=== PATIENT | male | born 1985 | race African-American/Black ===

== ENCOUNTER 2020-07-05 12:15 | Emergency (ER) | payer SELFPAY ==
[~2020-07-05] VITALS: Ht 175.3 cm; Wt 88.0 kg
[~2020-07-05 12:15] MED LIST: INSU100C SQ; INSU100I13 SQ; INSU100I17 SQ; INSU100I18 SQ; INSU100V SQ; INSU100V13 SQ; INSU100V31 SQ; Insulin Detemir SQ; ONDA8TAB9 PO
--- NOTE | 2020-07-05 12:36 | PHYS DOC ---
Past History Past Medical History: Diabetes (ONUR KARIMI APRN) Past Surgical History: No Surgical History (ONUR KARIMI APRN) Smoking: Cigarettes Alcohol Use: None Drug Use: Marijuana (ONUR KARIMI APRN) General Adult HPI: HPI: Patient is a 34-year-old male who presents with nausea/vomiting/diarrhea since Sunday. "I thought that he had food poisoning but I still have not gotten any better". Patient is reporting generalized abdominal pain. "My stomach starts hurting and burning before a throw up". Patient denies fever or recent exposure. Patient is a type I diabetic. "I have not taken my insulin or checked my blood sugar since Sunday". Patient states he has a history of hypertension, type 1 diabetes. Patient denies taking anything for nausea or abdominal pain prior to arrival. (ONUR KARIMI APRN) Review of Systems: Review of Systems: Constitutional: Denies fever or chills Eyes: Denies change in visual acuity HENT: Denies nasal congestion or sore throat Respiratory: Denies cough or shortness of breath Cardiovascular: Denies chest pain or edema GI: Reports generalized abdominal pain, nausea, vomiting, diarrhea : Denies dysuria Musculoskeletal: Denies back pain or joint pain Integument: Denies rash Neurologic: Denies headache, focal weakness or sensory changes Endocrine: Denies polyuria or polydipsia Lymphatic: Denies swollen glands Psychiatric: Denies depression or anxiety (ONUR KARIMI APRN) Allergies: Allergies: Allergies Coded Allergies Type Severity Reaction Last Updated Verified No Known Allergies Allergy Unknown 12/19/13 No (ONUR KARIMI APRN) Physical Exam: PE: Constitutional: Well developed, well nourished, no acute distress, non-toxic appearance. [] HENT: Normocephalic, atraumatic, bilateral external ears normal, oropharynx moist, no oral exudates, nose normal. [] Eyes: PERRLA, EOMI, conjunctiva normal, no discharge. [] Neck: Normal range of motion, no tenderness, supple, no stridor. [] Cardiovascular: Sinus tachycardia, no murmur [] Lungs & Thorax: Bilateral breath sounds clear to auscultation [] Abdomen: Bowel sounds normal, soft, no tenderness, no masses Skin: Warm, dry, no erythema, no rash. [] Back: No tenderness, no CVA tenderness. [] Extremities: No tenderness, no cyanosis, no clubbing, ROM intact, no edema. [] Neurologic: Alert and oriented X 3, normal motor function, normal sensory function, no focal deficits noted. [] Psychologic: Affect normal, judgement normal, mood normal. [] (ONUR KARIMI APRN) EKG: EKG: [] Sinus tachycardia. Heart rate 122 bpm. (ONUR KARIMI APRN) Radiology/Procedures: Radiology/Procedures: []EXAM: Chest, single view. HISTORY: Nausea and vomiting. COMPARISON: 07/22/2014 FINDINGS: A frontal view of the chest is obtained. There is no infiltrate, pleural effusion or pneumothorax. The heart is normal in size. IMPRESSION: No acute pulmonary finding. Electronically signed by: Lorena Kim MD (07/05/2020 1:02 PM) [id number] EXAM: Abdomen and pelvis CT without intravenous contrast. HISTORY: Pain. TECHNIQUE: Computed tomographic images of the abdomen and pelvis were obtained without contrast. Multiplanar reformatting was performed. *One or more of the following individualized dose reduction techniques were utilized for this examination: 1. Automated exposure control. 2. Adjustment of the mA and/or kV according to patient size. 3. Use of iterative reconstruction technique. COMPARISON: None. FINDINGS: Evaluation of the lower thorax is unremarkable. No hepatic lesion is seen. The gallbladder, pancreas, spleen, adrenal glands and right kidney are unremarkable. There is a 10 mm fluid density lesion within the inferior left kidney, likely due to a cyst. There is no appendicitis. There is no evidence of bowel obstruction. The bladder wall slightly prominent for bladder volume. This is not within limits to suggest cystitis. The aorta is normal in caliber. There is no lymphadenopathy. There is no suspicious osseous lesion. IMPRESSION: 1. No convincing acute abdominal or pelvic finding. 2. Small simple appearing left renal cyst. Follow-up is not routinely performed for simple cysts. Electronically signed by: Lorena Kim MD (07/05/2020 1:06 PM) [id number] (ONUR KARIMI APRN) Heart Score: C/O Chest Pain: No Risk Factors: Risk Factors: DM, Current or recent (<one month) smoker, HTN, HLP, family hi story of CAD, obesity. Risk Scores: Score 0 - 3: 2.5% MACE over next 6 weeks - Discharge Home Score 4 - 6: 20.3% MACE over next 6 weeks - Admit for Clinical Observation Score 7 - 10: 72.7% MACE over next 6 weeks - Early Invasive Strategies (ONUR KARIMI APRN) Course & Med Decision Making: Course & Med Decision Making Pertinent Labs and Imaging studies reviewed. (See chart for details) [] Patient presents to emergency room with nausea/vomiting/diarrhea since Sunday. Patient is a type I diabetic and has not been checking his sugars or taking his insulin since Sunday. Patient does report he is able to keep down fluids but has not been eating. NS bolus given due to vomiting and hypergl ycemia. Zofran given for nausea and vomiting. Patient sinus tachycardia on arrival, 125 bpm. Patient is alert and oriented x4. Denies chest pain or fever. Reporting generalized abdominal pain. Anion gap 16, creatinine 2.0. WBCs 14.9. pH 7.47, bicarb 22.6, SaO2 89%. Patient given second bolus of NS and 10 units of insulin. Patient's blood sugar is 260 after fluids and insulin. Patient states "I feel much better". Denying nausea, abdominal pain. Patient's stating that he does not want to be admitted to the hospital. Patient states that he has insulin at home and he agrees to check his blood sugar, and take his insulin as directed. Explained to patient that he needs to return to the emergency room with worsening symptoms or concerns. Patient agrees with this plan. (ONUR KARIMI APRN) Dragon Disclaimer: Dragon Disclaimer: This electronic medical record was generated, in whole or in part, using a voice recognition dictation system. (ONUR KARIMI APRN) Attending Co-Sign The patient was seen and interviewed as well as examined at the bedside. The main campus medical center rt was reviewed. The case was discussed. Agree with the plan of care. (KAY ARTIS DO) Departure Departure: Impression: Primary Impression: Hyperglycemia Disposition: HOME / SELF CARE / HOMELESS Condition: IMPROVED Referrals: PCP,NO (PCP) Patient Instructions: Hyperglycemia, [id number] Additional Instructions: You were seen in the emergency room for nausea/vomiting/diarrhea and hyperglycemia. Your blood sugar was elevated on arrival. You were given fluids and insulin to treat. You were also given medication to treat your nausea and pain. All of your symptoms and blood sugar improved after treatment. You were requesting a work note and to be discharged from the emergency room. Please continue to check your blood sugar and take your insulin as directed by your PCP. Please return to the emergency room with worsening symptoms or concerns. EMERGENCY DEPARTMENT GENERAL DISCHARGE INSTRUCTIONS Thank you for coming to [facility] (ED) today and trusting us with you care. We trust that you had a positivie experience in our Emergency Department. If you wish to speak to the department management, you may call the director at [phone]. YOUR FOLLOW UP INSTRUCTIONS ARE FOLLOWS: 1. Do you have a private Doctor? If you do not have a private doctor, please ask for a resource list of physicians or clinics that may be able to assist you with follow up care. 2. The Emergency Physician has interpreted your x-rays. The X-Ray specialist will also review them. If there is a change in the findings, you will be notified in 48 hours when at all possible. 3. A lab test or culture has been done, your results will be reviewed and you will be notified if you need a change in treatment. ADDITIONAL INSTRUCTIONS AND INFORMATION: 1. Your care today has been supervised by a physician who is specially trained in emergency care. Many problems require more than one evaluation for a complete diagnosis and treatment. We recommend that you schedule your follow up appointment as recommended to ensure complete treatment of you illness or injury. If you are unable to obtain follow up care and continue to have a problem, or if your condition worsens, we recommend that you return to the ED. 2. We are not able to safely determine your condition over the phone nor are we able to give sound medical advice over the phone. For these safety reasons, if you call for medical advice we will ask you to come to the ED for further evaluation. 3. If you have any questions regarding these discharge instructions please call the ED at [phone]. SAFETY INFORMATION: In the interest of safety, wellness, and injury prevention; we encourage you to wear your sealbelt, if you smoke; quite smoking, and we encourage family to use a protective helmet for bicycling and other sporting events that present an increased risk for head injury. IF YOUR SYMPTOMS WORSEN OR NEW SYMPTOMS DEVELOP, OR YOU HAVE CONCERNS ABOUT YOUR CONDITION; OR IF YOUR CONDITION WORSENS WHILE YOU ARE WAITING FOR YOUR FOLLOW UP APPOINTMENT; EITHER CONTACT YOUR PRIMARY CARE DOCTOR, THE PHYSICIAN WHOSE NAME AND NUMBER YOU WERE GIVEN, OR RETURN TO THE ED IMMEDIATELY. Scripts Ondansetron Hcl (ZOFRAN) 4 Mg Tablet 4 MG PO TID PRN PRN for NAUSEA, #9 TAB Prov: ONUR KARIMI APRN 07/05/20 ONUR KARIMI APRN Jul 05, 2020 12:36 KAY ARTIS DO Jul 06, 2020 06:13
[2020-07-05] MEDS ORDERED: IV NORMAL SALINE 1,000ML 1,000 ML IV ONE ×2 (12:45→14:15)
[2020-07-05] MEDS ORDERED: ONDANSETRON PF 4 MG/2 ML VIAL. IVP ONE ×2 (12:45→14:15)
[2020-07-05 13:00] LABS: BASO # 0.1 x10^3/uL (0.0-0.2); BASO % 1 % (0-3); EOS % 0 % (0-3); HEMATOCRIT 46.2 % (39.0-53.0); HEMOGLOBIN 15.9 g/dL (13.0-17.5); LYMPH # 2.9 x10^3/uL (1.0-4.8); LYMPH % 19 % (24-48); MEAN CORPUSCULAR HEMOGLOBIN 32 pg (25-35); MEAN CORPUSCULAR HGB CONC 35 g/dL (31-37); MEAN CORPUSCULAR VOLUME 92 fL (79-100); MONO # 1.1 x10^3/uL (0.0-1.1); MONO % 7 % (0-9); NEUT # 10.8 x10^3uL (1.8-7.7); NEUT % 73 % (31-73); PLATELET COUNT 236 x10^3/uL (140-400); RED BLOOD COUNT 5.04 x10^6/uL (4.30-5.70); RED CELL DISTRIBUTION WIDTH 12.8 % (11.5-14.5); WHITE BLOOD COUNT 14.9 x10^3/uL (4.0-11.0)
--- NOTE | 2020-07-05 13:04 | RAD ---
EXAM: Chest, single view. HISTORY: Nausea and vomiting. COMPARISON: 07/22/2014 FINDINGS: A frontal view of the chest is obtained. There is no infiltrate, pleural effusion or pneumo thorax. The heart is normal in size. IMPRESSION: No acute pulmonary finding. Electronically signed by: Lorena Kim MD (07/05/2020 1:02 PM) [id number]
[2020-07-05 13:05] LABS: GFR 47.1
--- NOTE | 2020-07-05 13:08 | RAD ---
EXAM: Abdomen and pelvis CT without intravenous contrast. HISTORY: Pain. TECHNIQUE: Computed tomographic images of the abdomen and pelvis were obtained without contrast. Mult iplanar reformatting was performed. *One or more of the following individualized dose reduction techniques were utilized for this examina tion: 1. Automated exposure control. 2. Adjustment of the mA and/or kV according to patient size. 3. Use of iterative reconstruction technique. COMPARISON: None. FINDINGS: Evaluation of the lower thorax is unremarkable. No hepatic lesion is seen. The gallbladder, pancreas, spleen, adrenal glands and right kidney are unremarkable. There is a 10 mm fluid density l esion within the inferior left kidney, likely due to a cyst. There is no appendicitis. There is no ev idence of bowel obstruction. The bladder wall slightly prominent for bladder volume. This is not with in limits to suggest cystitis. The aorta is normal in caliber. There is no lymphadenopathy. There is no suspicious osseous lesion. IMPRESSION: 1. No convincing acute abdominal or pelvic finding. 2. Small simple appearing left renal cyst. Follow-up is not routinely performed for simple cysts. Electronically signed by: Lorena Kim MD (07/05/2020 1:06 PM) [id number]
[2020-07-05 13:10] LABS: ALBUMIN 3.5 g/dL (3.4-5.0); ALBUMIN/GLOBULIN RATIO 0.8 (1.0-1.7); MAGNESIUM 2.1 mg/dL (1.8-2.4); TOTAL BILIRUBIN 0.9 mg/dL (0.2-1.0); TOTAL PROTEIN 7.8 g/dL (6.4-8.2)
[2020-07-05] MEDS ORDERED: INSULIN REGULAR 100 UNIT/ML 3ML VIAL. IV ONE (13:45)
[2020-07-05] MEDS ORDERED: MORPHINE SULFATE 4 MG/ML DISP.SYRIN. IV ONE (14:15)
--- NOTE | 2020-07-05 15:04 | EKG ---
[address] [address] Test Date: 2020-07-05 Test Time: 13:15:06 Pat Name: NISHA BAIRD Department: Room: Gender: M [employer] Computer Operator: ALDO : [id number] Requested By: ONUR KARIMI Order Number: [id number] Reading MD: Measurements Intervals [place] Rate: 122 P: 53 NV: 126 QRS: 81 QRSD: 90 T: 51 QT: 310 QTc: 443 Interpretive Statements SINUS TACHYCARDIA OTHERWISE NORMAL ECG RI6.02 No previous ECG available for comparison
[2020-07-05 15:22] VITALS: BP 173/91
[2020-07-05] MEDS ORDERED: ONDA4TAB7 PO (15:26)
== END 2020-07-05 15:48 | disposition home or self-care (01) ==
LOC: ER 12:15
DX: E11.65 Type 2 diabetes mellitus with hyperglycemia (principal); R11.2 Nausea with vomiting, unspecified; I10 Essential (primary) hypertension; F17.210 Nicotine dependence, cigarettes, uncomplicated
CPT/HCPCS: 36415; 71045; 74176; 80053; 82010; 82803; 82947; 83735; 85025; 93005; 96361; 96374; 96375; 96376; 99285; J1815; J2270; J2405; J7030

== ENCOUNTER 2020-07-10 13:18 | Emergency (ER) | payer SELFPAY ==
[~2020-07-10] VITALS: Ht 175.3 cm; Wt 88.0 kg
[~2020-07-10 13:18] MED LIST changes: +ONDA4TAB7 PO
[2020-07-10] MEDS ORDERED: IV NORMAL SALINE 1,000ML 1,000 ML IV ONE ×2 (13:45→16:15)
[2020-07-10 13:56] LABS: BASO # 0.1 x10^3/uL (0.0-0.2); BASO % 1 % (0-3); EOS # 0.3 x10^3/uL (0.0-0.7); EOS % 2 % (0-3); HEMATOCRIT 43.1 % (39.0-53.0); HEMOGLOBIN 15.1 g/dL (13.0-17.5); LYMPH # 2.4 x10^3/uL (1.0-4.8); LYMPH % 21 % (24-48); MEAN CORPUSCULAR HEMOGLOBIN 32 pg (25-35); MEAN CORPUSCULAR HGB CONC 35 g/dL (31-37); MEAN CORPUSCULAR VOLUME 90 fL (79-100); MONO # 0.7 x10^3/uL (0.0-1.1); MONO % 7 % (0-9); NEUT # 8.1 x10^3uL (1.8-7.7); NEUT % 70 % (31-73); PLATELET COUNT 194 x10^3/uL (140-400); RED BLOOD COUNT 4.79 x10^6/uL (4.30-5.70); RED CELL DISTRIBUTION WIDTH 12.6 % (11.5-14.5); WHITE BLOOD COUNT 11.5 x10^3/uL (4.0-11.0)
[2020-07-10] MEDS ORDERED: ONDANSETRON PF 4 MG/2 ML VIAL. IVP ONE ×2 (14:00→16:15)
[2020-07-10] MEDS ORDERED: MORPHINE SULFATE 4 MG/ML DISP.SYRIN. IV ONE (14:00)
[2020-07-10 14:03] LABS: CALCIUM 8.4 mg/dL (8.5-10.1); CREATININE 1.6 mg/dL (0.7-1.3); GFR 60.9; POTASSIUM 3.4 mmol/L (3.5-5.1)
--- NOTE | 2020-07-10 14:03 | PHYS DOC ---
Past History Past Medical History: Diabetes Past Surgical History: No Surgical History Smoking: Cigarettes Alcohol Use: None Drug Use: Marijuana General Adult EDM: Chief Complaint: NAUSEA/VOMITING/DIARRHEA HPI: HPI: Patient is a 34-year-old male who presents with nausea/vomiting/diarrhea, left- sided flank pain. Patient was seen here earlier in the week for vomiting and diarrhea, uncontrolled blood sugars. Patient states "I felt fine until this morning, started having left-sided back pain, vomiting and diarrhea". Patient denies fever. Patient reports pain is sharp, generalized lower abdominal pain. Blood sugar was 148 emergency room. Patient states he has been taking ibuprofen and Zofran at home for nausea. Patient reports he is out for nausea medication. Patient has history of diabetes. Review of Systems: Review of Systems: Constitutional: Denies fever or chills Eyes: Denies change in visual acuity HENT: Denies nasal congestion or sore throat Respiratory: Denies cough or shortness of breath Cardiovascular: Denies chest pain or edema GI: Reports abdominal pain, nausea/vomiting/diarrhea : Denies dysuria Musculoskeletal: Reports left-sided flank pain Integument: Denies rash Neurologic: Denies headache, focal weakness or sensory changes Endocrine: Denies polyuria or polydipsia Lymphatic: Denies swollen glands Psychiatric: Denies depression or anxiety Current Medications: Current Meds: Current Medications Medications (Trade) Dose Ordered Sig/Meghann Start Time Stop Time Status Last Admin Dose Admin Morphine Sulfate (Morphine 4mg Syringe) 4 mg 1X ONCE 07/10/20 14:00 07/10/20 14:01 UNV Ondansetron HCl (Zofran) 4 mg 1X ONCE 07/10/20 14:00 07/10/20 14:01 UNV Sodium Chloride 1,000 ml @ 1,000 mls/hr 1X ONCE 07/10/20 13:45 07/10/20 14:44 Allergies: Allergies: Allergies Coded Allergies Type Severity Reaction Last Updated Verified No Known Allergies Allergy Unknown 12/19/13 No Physical Exam: PE: Constitutional: Well developed, well nourished, no acute distress, non-toxic appearance. [] HENT: bilateral external ears normal, oropharynx moist, no oral exudates, nose normal. [] Eyes: PERRLA, EOMI, conjunctiva normal, no discharge. [] Neck: Normal range of motion, no tenderness, supple, no stridor. [] Cardiovascular:Heart rate regular rhythm, no murmur [] Lungs & Thorax: Bilateral breath sounds clear to auscultation [] Abdomen: Bowel sounds normal, soft, lower abdominal tenderness Skin: Warm, dry, no erythema, no rash. [] Back: No tenderness, left-sided flank pain Extremities: No tenderness, no cyanosis, no clubbing, ROM intact, no edema. [] Neurologic: Alert and oriented X 3, normal motor function, normal sensory function, no focal deficits noted. [] Psychologic: Affect normal, judgement normal, mood normal. [] Current Patient Data: Labs: Laboratory Tests Test 07/10/20 13:38 07/10/20 13:51 White Blood Count 11.5 x10^3/uL (4.0-11.0) H Red Blood Count 4.79 x10^6/uL (4.30-5.70) Hemoglobin 15.1 g/dL (13.0-17.5) Hematocrit 43.1 % (39.0-53.0) Mean Corpuscular Volume 90 fL (79-100) Mean Corpuscular Hemoglobin 32 pg (25-35) Mean Corpuscular Hemoglobin Concent 35 g/dL (31-37) Red Cell Distribution Width 12.6 % (11.5-14.5) Platelet Count 194 x10^3/uL (140-400) Neutrophils (%) (Auto) 70 % (31-73) Lymphocytes (%) (Auto) 21 % (24-48) L Monocytes (%) (Auto) 7 % (0-9) Eosinophils (%) (Auto) 2 % (0-3) Basophils (%) (Auto) 1 % (0-3) Neutrophils # (Auto) 8.1 x10^3uL (1.8-7.7) H Lymphocytes # (Auto) 2.4 x10^3/uL (1.0-4.8) Monocytes # (Auto) 0.7 x10^3/uL (0.0-1.1) Eosinophils # (Auto) 0.3 x10^3/uL (0.0-0.7) Basophils # (Auto) 0.1 x10^3/uL (0.0-0.2) Glucose (Fingerstick) 148 mg/dL (70-99) H EKG: EKG: [] Radiology/Procedures: Radiology/Procedures: []EXAM: Abdomen and pelvis CT without intravenous contrast. HISTORY: Pain. TECHNIQUE: Computed tomographic images of the abdomen and pelvis were obtained without contrast. Multiplanar reformatting was performed. *One or more of the following individualized dose reduction techniques were utilized for this examination: 1. Automated exposure control. 2. Adjustment of the mA and/or kV according to patient size. 3. Use of iterative reconstruction technique. COMPARISON: 07/05/2020. FINDINGS: Evaluation of the lower thorax is unremarkable. No hepatic lesion is seen. The gallbladder, pancreas, spleen, adrenal glands and right kidney are unremarkable. There is a stable fluid density lesion within the lower pole the left kidney, likely a cyst. There is no appendicitis. There is no bowel obstruction. There is moderate colonic stool. The urinary bladder and prostate are unremarkable. There are calcifications within the penis. There is no lymphadenopathy. There is no suspicious osseous lesion. IMPRESSION: 1. No acute abdominal or pelvic finding. 2. Stable suspected left renal cyst. Follow up is not routinely performed for simple cysts. 3. Penile calcifications. Correlate for Peyronie disease. Electronically signed by: Lorena Kim MD (07/10/2020 2:18 PM) [id number] Heart Score: C/O Chest Pain: No Risk Factors: Risk Factors: DM, Current or recent (<one month) smoker, HTN, HLP, family history of CAD, obesity. Risk Scores: Score 0 - 3: 2.5% MACE over next 6 weeks - Discharge Home Score 4 - 6: 20.3% MACE over next 6 weeks - Admit for Clinical Observation Score 7 - 10: 72.7% MACE over next 6 weeks - Early Invasive Strategies Course & Med Decision Making: Course & Med Decision Making Pertinent Labs and Imaging studies reviewed. (See chart for details) [] Patient is 34-year-old male with nausea/vomiting/diarrhea, left-sided flank pain. She reports he started having lower abdominal pain radiating to his left flank this morning. Patient was seen in the emergency room earlier in the week for uncontrolled blood sugars, nausea/vomiting/diarrhea. Patient states symptoms had improved until this morning. Patient's been using insulin at home as directed and blood sugars have been normal. Blood sugar was 148 in the emergency room. Lactic of 2.1., WBC 11.5. 2 L of normal saline given, 8 of Zofran to treat nausea and dehydration. CT of abdomen and pelvis ordered to rule out kidney stone. CT was negative for any acute abnormalities. Patient was given water and crackers and was able to keep that down. Zofran sent to his pharmacy. Patient instructed to return to emergency room with worsening symptoms or concerns. Patient is hemodynamically stable on discharge and able to ambulate on his own. Patient agrees with discharge plan. Dragon Disclaimer: Dragon Disclaimer: This electronic medical record was generated, in whole or in part, using a voice recognition dictation system. Departure Departure: Impression: Primary Impression: Vomiting Qualified Codes: R11.2 - Nausea with vomiting, unspecified Disposition: HOME / SELF CARE / HOMELESS Condition: STABLE Referrals: [facility] (PCP) Patient Instructions: Nausea and Vomiting, Rltl-im-[id number] Additional Instructions: You were seen in the emergency room for nausea and vomiting. I have written you prescription for Zofran at home. Please make sure to increase your fluids. Continue taking your insulin and checking your blood sugar as directed. Please return to the emergency room with worsening symptoms or concerns. EMERGENCY DEPARTMENT GENERAL DISCHARGE INSTRUCTIONS Thank you for coming to [facility] ([facility]) today and trusting us with you care. We trust that you had a positivie experience in our Emergency Department. If you wish to speak to the department management, you may call the director at [phone]. YOUR FOLLOW UP INSTRUCTIONS ARE FOLLOWS: 1. Do you have a private Doctor? If you do not have a private doctor, please ask for a resource list of physicians or clinics that may be able to assist you with follow up care. 2. The Emergency Physician has interpreted your x-rays. The X-Ray specialist will also review them. If there is a change in the findings, you will be notified in 48 hours when at all possible. 3. A lab test or culture has been done, your results will be reviewed and you will be notified if you need a change in treatment. ADDITIONAL INSTRUCTIONS AND INFORMATION: 1. Your care today has been supervised by a physician who is specially trained in emergency care. Many problems require more than one evaluation for a complete diagnosis and treatment. We recommend that you schedule your follow up appointment as recommended to ensure complete treatment of you illness or injury. If you are unable to obtain follow up care and continue to have a problem, or if your condition worsens, we recommend that you return to the ED. 2. We are not able to safely determine your condition over the phone nor are we able to give sound medical advice over the phone. For these safety reasons, if you call for medical advice we will ask you to come to the ED for further evaluation. 3. If you have any questions regarding these discharge instructions please call the ED at [phone]. SAFETY INFORMATION: In the interest of safety, wellness, and injury prevention; we encourage you to wear your sealbelt, if you smoke; quite smoking, and we encourage family to use a protective helmet for bicycling and other sporting events that present an increased risk for head injury. IF YOUR SYMPTOMS WORSEN OR NEW SYMPTOMS DEVELOP, OR YOU HAVE CONCERNS ABOUT YOUR CONDITION; OR IF YOUR CONDITION WORSENS WHILE YOU ARE WAITING FOR YOUR FOLLOW UP APPOINTMENT; EITHER CONTACT YOUR PRIMARY CARE DOCTOR, THE PHYSICIAN WHOSE NAME AND NUMBER YOU WERE GIVEN, OR RETURN TO THE ED IMMEDIATELY. Scripts Ondansetron Hcl (ZOFRAN) 4 Mg Tablet 4 MG PO TID PRN PRN for NAUSEA, #9 TAB Prov: ONUR KRAIMI APRN 07/10/20 ONUR KARIMI APRN Jul 10, 2020 14:03
[2020-07-10 14:09] LABS: ALBUMIN 2.8 g/dL (3.4-5.0); ALBUMIN/GLOBULIN RATIO 0.7 (1.0-1.7); TOTAL BILIRUBIN 0.4 mg/dL (0.2-1.0); TOTAL PROTEIN 6.6 g/dL (6.4-8.2)
--- NOTE | 2020-07-10 14:21 | RAD ---
EXAM: Abdomen and pelvis CT without intravenous contrast. HISTORY: Pain. TECHNIQUE: Computed tomographic images of the abdomen and pelvis were obtained without contrast. Mult iplanar reformatting was performed. *One or more of the following individualized dose reduction techniques were utilized for this examina tion: 1. Automated exposure control. 2. Adjustment of the mA and/or kV according to patient size. 3. Use of iterative reconstruction technique. COMPARISON: 07/05/2020. FINDINGS: Evaluation of the lower thorax is unremarkable. No hepatic lesion is seen. The gallbladder, pancreas, spleen, adrenal glands and right kidney are unremarkable. There is a stable fluid density lesion within the lower pole the left kidney, likely a cyst. There is no appendicitis. There is no bowel obstruction. There is moderate colonic stool. The urinary bladder and prostate are unremarkable. There are calcifications within the penis. There is no lympha denopathy. There is no suspicious osseous lesion. IMPRESSION: 1. No acute abdominal or pelvic finding. 2. Stable suspected left renal cyst. Follow up is not routinely performed for simple cysts. 3. Penile calcifications. Correlate for Peyronie disease. Electronically signed by: Lorena Kim MD (07/10/2020 2:18 PM) [id number]
[2020-07-10 15:59] LABS: BILIRUBIN,URINE NEG (NEG); CLARITY,URINE CLEAR; COLOR,URINE YELLOW; GLUCOSE,URINE NEG (NEG)
[2020-07-10 16:00] LABS: NITRITE,URINE NEG (NEG); UROBILINOGEN,URINE 0.2 mg/dL (0.2 mg/dL)
[2020-07-10 16:01] LABS: BACTERIA,URINE 0 /HPF (0-FEW); WBC,URINE 0 /HPF (0-4)
[2020-07-10 16:23] VITALS: BP 147/90
[2020-07-10] MEDS ORDERED: ONDA4TAB7 PO (17:13)
== END 2020-07-10 18:10 | disposition home or self-care (01) ==
LOC: ER 13:18
DX: R11.2 Nausea with vomiting, unspecified (principal); R10.84 Generalized abdominal pain; R19.7 Diarrhea, unspecified; M54.89 Other dorsalgia; E11.9 Type 2 diabetes mellitus without complications; F17.210 Nicotine dependence, cigarettes, uncomplicated
CPT/HCPCS: 36415; 74176; 80053; 81001; 82947; 83605; 83690; 85025; 96361; 96374; 96375; 96376; 99284; J2270; J2405; J7030

== ENCOUNTER 2020-12-22 23:48 | Emergency (ER) | payer SELFPAY ==
[~2020-12-22] VITALS: Ht 175.3 cm; Wt 86.9 kg
[2020-12-23 00:07] VITALS: BP 150/78
[2020-12-23] MEDS ORDERED: cefTRIAXone IM 1 GM VIAL IM ONE (00:30)
--- NOTE | 2020-12-23 00:34 | PHYS DOC ---
Past History Past Medical History: Diabetes Past Surgical History: No Surgical History Smoking: Cigarettes Alcohol Use: None Drug Use: Marijuana General Adult EDM: Chief Complaint: SKIN PROBLEM HPI: HPI: "..I got this sore on the little toe Rt... I think it is infected.. I thinik it started with blister or scrape.. but it seems to be getting worse..."" Patient is a 35 year old male who presents with above hx and complaints of pain, redness in Rt. foot. Pt. has hx diabetes. Patient advises sugars at home event at 200 today. Patient denies any fever chills. Patient denies any history immunosuppression. Patient does have sensation in both feet. Distal neurovascular is equal in both feet. Except findings and right little toe which has a 1 x 1 cm ulcer on the lateral edge of his fifth toe. No adenopathy. No striations. No recent travel. Poorly tetanus is up-to-date Review of Systems: Review of Systems: Constitutional: Denies fever or chills Eyes: Denies change in visual acuity HENT: Denies nasal congestion or sore throat Respiratory: Denies cough or shortness of breath Cardiovascular: Denies chest pain or edema GI: Denies abdominal pain, nausea, vomiting, bloody stools or diarrhea : Denies dysuria Musculoskeletal: Denies back pain or joint pain Integument: Denies rash complains of skin ulcer right fifth toe Neurologic: Denies headache, focal weakness or sensory changes Endocrine: Denies polyuria or polydipsia Lymphatic: Denies swollen glands Psychiatric: Denies depression or anxiety Family History: Family History: Diabetes and hypertension Current Medications: Current Meds: See nursing for home meds Current Medications Medications (Trade) Dose Ordered Sig/Meghann Start Time Stop Time Status Last Admin Dose Admin Ceftriaxone Sodium (Rocephin Im) 1 gm 1X ONCE 12/23/20 00:30 12/23/20 00:31 DC Allergies: Allergies: Allergies Coded Allergies Type Severity Reaction Last Updated Verified No Known Allergies Allergy Unknown 12/19/13 No Physical Exam: PE: Constitutional: Well developed, well nourished, no acute distress, non-toxic appearance. [] HENT: Normocephalic, atraumatic, bilateral external ears normal, oropharynx moist, no oral exudates, nose normal. [] Eyes: PERRLA, EOMI, conjunctiva normal, no discharge. [] Neck: Normal range of motion, no tenderness, supple, no stridor. [] Cardiovascular:Heart rate regular rhythm, no murmur [] Lungs & Thorax: Bilateral breath sounds clear to auscultation [] Abdomen: Bowel sounds normal, soft, no tenderness, no masses, no pulsatile masses. [] Skin: Warm, dry, no erythema, no rash. [Ulcer right fifth toe Back: No tenderness, no CVA tenderness. [] Extremities: No tenderness, no cyanosis, no clubbing, ROM intact, no edema. [] Neurologic: Alert and oriented X 3, normal motor function, normal sensory function, no focal deficits noted. [] Psychologic: Affect normal, judgement normal, mood normal. [] Current Patient Data: Vital Signs: Vital Signs Date Time Temp Pulse Resp B/P (MAP) Pulse Ox O2 Delivery O2 Flow Rate FiO2 12/23/20 00:07 99.1 98 16 150/78 (102) 97 EKG: EKG: [] Radiology/Procedures: Radiology/Procedures: [][address] [address] IMAGING REPORT Signed PATIENT: NISHA BAIRD ACCOUNT: [id number] : 1985 LOCATION: ER AGE: 35 SEX: M EXAM STATUS: REG ER ORD. PHYSICIAN: TARA THOMPSON MD REASON: PAIN, WOUND LATERAL 5TH TOE PROCEDURE: FOOT RIGHT 3V Three-view right foot dated 12/23/2020. No comparison available. CLINICAL INDICATION: Pain.. Foot wound FINDINGS: 3 views right foot show normal bony alignment. No displaced fracture. There is soft tissue swelling and soft tissue gas laterally over the fifth PIP joint. No periostitis or bone destruction. Diffuse vascular calcinosis. IMPRESSION: 1. Soft tissue swelling and soft tissue gas laterally over the fifth PIP joint consistent with given history of infection. No plain film evidence of underlying osteomyelitis. Electronically signed by: Sravan Leslie MD (12/23/2020 12:48 AM) [facility] DICTATED AND SIGNED BY: SRAVAN LESLIE MD DATE: 12/23/20 0047 CC: TARA THOMPSON MD; PCP,NO ~MTH0 0 Heart Score: C/O Chest Pain: N/A Risk Factors: Risk Factors: DM, Current or recent (<one month) smoker, HTN, HLP, family history of CAD, obesity. Risk Scores: Score 0 - 3: 2.5% MACE over next 6 weeks - Discharge Home Score 4 - 6: 20.3% MACE over next 6 weeks - Admit for Clinical Observation Score 7 - 10: 72.7% MACE over next 6 weeks - Early Invasive Strategies Course & Med Decision Making: Course & Med Decision Making Pertinent Labs and Imaging studies reviewed. (See chart for details) Patient do foot soaks and warm salt water or Epson salts 4 times a day. Afterwards massage ulcer with Polysporin 4 times a day. Patient take Keflex 500 mg and Flagyl 500 mg 3 times a day. Follow-up with primary care. Daily photographs of right toe. And then weekly there afterwards. If no improvement will need an earlier follow-up primary care. Wear only white socks. Impression: 1. Diabetes 2. Diabetic foot ulcer [] Dragon Disclaimer: Dragnancy Disclaimer: This electronic medical record was generated, in whole or in part, using a voice recognition dictation system. Departure Departure: Referrals: PCP,NO (PCP) Scripts Cephalexin (KEFLEX) 500 Mg Capsule 1 CAP PO TID for infection, #30 CAP Prov: TARA THOMPSON MD 12/23/20 Metronidazole (FLAGYL) 500 Mg Tablet 500 MG PO TID for infection for 10 Days, #30 TAB Prov: TARA THOMPSON MD 12/23/20 Dragon Disclaimer This chart was dictated in whole or in part using Voice Recognition software in a busy, high-work load, and often noisy Emergency Department environment. It may contain unintended and wholly unrecognized errors or omissions. TARA THOMPSON MD Dec 23, 2020 00:33
--- NOTE | 2020-12-23 00:51 | RAD ---
Three-view right foot dated 12/23/2020. No comparison available. CLINICAL INDICATION: Pain.. Foot wound FINDINGS: 3 views right foot show normal bony alignment. No displaced fracture. There is soft tissue swelling a nd soft tissue gas laterally over the fifth PIP joint. No periostitis or bone destruction. Diffuse va scular calcinosis. IMPRESSION: 1. Soft tissue swelling and soft tissue gas laterally over the fifth PIP joint consistent with given history of infection. No plain film evidence of underlying osteomyelitis. Electronically signed by: Sravan Leslie MD (12/23/2020 12:48 AM) GABY
[2020-12-23] MEDS ORDERED: METR500T PO (01:00)
[2020-12-23] MEDS ORDERED: metroNIDAZOLE 500 MG TABLET PO ONE (01:00)
[2020-12-23] MEDS ORDERED: CEPH500C PO (01:00)
== END 2020-12-23 01:12 | disposition home or self-care (01) ==
LOC: ER 23:48
DX: E11.621 Type 2 diabetes mellitus with foot ulcer (principal); F12.10 Cannabis abuse, uncomplicated; F17.210 Nicotine dependence, cigarettes, uncomplicated
CPT/HCPCS: 73630; 96372; 99283; J0696; 99284-25

== ENCOUNTER 2021-03-22 17:51 | Emergency (ER) | payer SELFPAY ==
[~2021-03-22 17:51] MED LIST changes: +CEPH500C PO; +METR500T PO
[2021-03-22] MEDS ORDERED: ONDANSETRON ODT 4 MG TAB.RAPDIS PO ONE (18:45)
[2021-03-23] MEDS ORDERED: CAPS42.514 TP (11:49)
[2021-03-23] MEDS ORDERED: ONDA4TAB12 PO (11:49)
[2021-03-23] MEDS ORDERED: FAMO-63 PO (11:51)
== END 2021-03-22 19:04 | disposition left against medical advice (07) ==
LOC: ER 17:51
DX: R10.9 Unspecified abdominal pain (principal); R07.9 Chest pain, unspecified; R11.2 Nausea with vomiting, unspecified; R19.7 Diarrhea, unspecified; Z53.21 Procedure and treatment not carried out due to patient leaving prior to being seen by health care provider

== ENCOUNTER 2021-03-23 07:54 | Emergency (ER) | payer SELFPAY ==
[~2021-03-23] VITALS: Ht 175.3 cm; Wt 77.0 kg
[2021-03-23] MEDS ORDERED: FAMOTIDINE 20 MG/2 ML VIAL IVP ONE (08:45)
[2021-03-23] MEDS ORDERED: IV NORMAL SALINE 1,000ML 1,000 ML IV SCH (08:45)
[2021-03-23] MEDS ORDERED: ONDANSETRON PF 4 MG/2 ML VIAL. IVP ONE (08:45)
--- NOTE | 2021-03-23 08:50 | RAD ---
EXAMINATION: Chest radiograph. VIEWS: Single AP view of chest COMPARISON: 07/05/2020 INDICATION:35 years, Male, Nausea vomiting. FINDINGS: Normal cardiomediastinal silhouette. No focal consolidation. No pleural effusion or pneumothorax. No acute osseous process. IMPRESSION: No confluent infiltrate. Electronically signed by: Norberto Roberson DO (03/23/2021 8:47 AM) [id number]
[2021-03-23 09:00] LABS: BASO # 0.1 x10^3/uL (0.0-0.2); BASO % 0 % (0-3); EOS % 0 % (0-3); HEMATOCRIT 40.9 % (39.0-53.0); LYMPH # 2.6 x10^3/uL (1.0-4.8); LYMPH % 21 % (24-48); MEAN CORPUSCULAR HEMOGLOBIN 32 pg (25-35); MEAN CORPUSCULAR HGB CONC 34 g/dL (31-37); MEAN CORPUSCULAR VOLUME 93 fL (79-100); MONO # 0.8 x10^3/uL (0.0-1.1); MONO % 7 % (0-9); NEUT # 9.1 x10^3uL (1.8-7.7); NEUT % 72 % (31-73); PLATELET COUNT 231 x10^3/uL (140-400); RED BLOOD COUNT 4.41 x10^6/uL (4.30-5.70); RED CELL DISTRIBUTION WIDTH 13.7 % (11.5-14.5); WHITE BLOOD COUNT 12.6 x10^3/uL (4.0-11.0)
--- NOTE | 2021-03-23 09:10 | EKG ---
[address] [address] Test Date: 2021-03-23 Test Time: 08:46:13 Pat Name: NISHA BAIRD Department: Room: Gender: M Tire Stripper: ALDO : 1985 Requested By: ODIN SMITH Order Number: [id number] Reading MD: Clem Zavala Measurements Intervals [place] Rate: 121 P: 57 CA: 136 QRS: 76 QRSD: 84 T: 27 QT: 330 QTc: 471 Interpretive Statements SINUS TACHYCARDIA Electronically Signed On 03-24-2021 15:01:01 PHARMACY INFORMATICS SPECIALIST by Clem Zavala
[2021-03-23 09:15] LABS: ALBUMIN 2.9 g/dL (3.4-5.0); ALBUMIN/GLOBULIN RATIO 0.7 (1.0-1.7); CALCIUM 8.7 mg/dL (8.5-10.1); GFR 46.8; TOTAL BILIRUBIN 0.6 mg/dL (0.2-1.0); TOTAL PROTEIN 6.8 g/dL (6.4-8.2)
[2021-03-23 09:17] LABS: POTASSIUM 2.9 mmol/L (3.5-5.1)
[2021-03-23] MEDS ORDERED: IOHEXOL 300 MG/ML 75 ML VIAL. IV ONE (09:30)
[2021-03-23 09:45] LABS: AMPHETAMINE/METHAMPHETAMINE NEG (NEG); BARBITURATES NEG (NEG); BENZODIAZEPINES NEG (NEG); CANNABINOIDS POS (NEG); COCAINE NEG (NEG); METHADONE NEG (NEG); OPIATES NEG (NEG); PHENCYCLIDINE NEG (NEG)
[2021-03-23] MEDS ORDERED: IV NORMAL SALINE 1,000ML 1,000 ML IV ONE (09:45)
[2021-03-23] MEDS ORDERED: LIDO:MAALOX 1:1 20 ML SINGLE DOSE. PO ONE (09:45)
[2021-03-23] MEDS ORDERED: HALOPERIDOL LACT 5 MG/ML VIAL. IVP ONE (09:45)
[2021-03-23 09:52] LABS: BACTERIA,URINE 0 /HPF (0-FEW); BILIRUBIN,URINE SMALL (NEG); CLARITY,URINE CLEAR; COLOR,URINE YELLOW; GLUCOSE,URINE NEG (NEG); NITRITE,URINE NEG (NEG)
--- NOTE | 2021-03-23 10:41 | RAD ---
INDICATION: Reason: upper abd pain - UNABLE TO INJECT DUE TO CREAT LEVEL / Spl. Instructions: / Hist ory: COMPARISON: July 10, 2020 TECHNIQUE: Axial CT images were obtained through the abdomen and pelvis without intravenous contrast. One or more of the following individualized dose reduction techniques were utilized for this examinat ion: 1. Automated exposure control; 2. Adjustment of the mA and/or kV according to patient size; 3 . Use of iterative reconstruction technique. FINDINGS: Mild prominence the wall of the distal esophagus. There is a calcification partially visualized at the penile region centrally. This was also seen on p rior. Vascular: Calcific atherosclerosis. Hepatobiliary: No intrahepatic biliary duct dilation. Pancreas: Limited assessment without intravenous contrast. Spleen: Spleen unremarkable. Renal/Bladder: No hydronephrosis. Urinary bladder is partially distended. Mild prominence of wall. Gastrointestinal: No dilated loops of bowel to suggest obstruction. There is some gas and stool seen within the appendix with the appendix does not appear grossly inflamed. Degenerative changes throughout the spine. IMPRESSION: * No CT evidence of bowel obstruction or appendicitis. * Mild prominence the wall the distal esophagus. Could be from lack of distention unless the patient is having symptoms in the region to suggest an alternative cause such as reflux or esophagitis. Electronically signed by: Hari Gregorio MD (03/23/2021 10:39 AM) [id number]
[2021-03-23] MEDS ORDERED: POTASSIUM CITRATE 10 MEQ TABLET.ER PO STA (10:46)
--- NOTE | 2021-03-23 10:52 | PHYS DOC ---
Past History Past Medical History: Diabetes Past Surgical History: No Surgical History Smoking: Cigarettes Alcohol Use: None Drug Use: Marijuana Social History Narrative: DAILY MARIJUANA General Adult EDM: Chief Complaint: ABDOMINAL PAIN HPI: HPI: 35 yo DAMIAN Abarca reports history of "stomach infection," and tobacco use presents to the ED with his sister, (patient consents to his/her/their knowledge and involvement in pts' medical care), with complaints of upper abdominal pain, nausea and vomiting, stating these symptoms have been occuring on a weekly basis "for months." Does report history of daily marijuana use. States he has been here in the past for the same symptoms and "no one does anything." Has followed up at [facility]. Has no pcp. Has not seen GI. No foreign travel in the past year. No PSH. Review of Systems: Review of Systems: Constitutional: Denies fever or chills Eyes: Denies change in visual acuity HENT: Denies nasal congestion or sore throat Respiratory: Denies cough or shortness of breath Cardiovascular: Denies chest pain or edema GI: Denies bloody stools or diarrhea : Denies dysuria or hematuria Musculoskeletal: Denies back pain or joint pain Integument: Denies rash or diaphoresis Neurologic: Denies headache, focal weakness or sensory changes Endocrine: Denies polyuria or polydipsia Lymphatic: Denies swollen glands Psychiatric: Denies depression or anxiety Current Medications: Current Meds: Current Medications Medications (Trade) Dose Ordered Sig/Meghann Start Time Stop Time Status Last Admin Dose Admin Famotidine (Pepcid Vial) 20 mg 1X ONCE 03/23/21 08:45 03/23/21 08:46 DC 03/23/21 08:53 20 MG Haloperidol Lactate (Haldol) 5 mg 1X ONCE 03/23/21 09:45 03/23/21 09:46 DC 03/23/21 09:41 5 MG Iohexol (Omnipaque 300 Mg/ml) 75 ml 1X ONCE 03/23/21 09:30 03/23/21 09:31 DC Multi-Ingredient Mouthwash/Gargle (Gi Cocktail) 20 ml 1X ONCE 03/23/21 09:45 03/23/21 09:46 DC 03/23/21 10:21 20 ML Ondansetron HCl (Zofran) 4 mg 1X ONCE 03/23/21 08:45 03/23/21 08:46 DC 03/23/21 08:53 4 MG Sodium Chloride 1,000 ml @ 1,000 mls/hr 1X ONCE 03/23/21 09:45 03/23/21 10:44 DC 03/23/21 09:41 1,000 MLS/HR Allergies: Allergies: Allergies Coded Allergies Type Severity Reaction Last Updated Verified No Known Allergies Allergy Unknown 03/23/21 No Physical Exam: PE: Constitutional: Well developed, non-toxic appearance. HENT: Normocephalic, atraumatic, dry mucous membranes Eyes: EOMI, conjunctiva normal, no discharge. Neck: Normal range of motion, supple, Cardiovascular: S1/2 present, tachycardic Lungs & Thorax: Speaking in full sentences, bilateral equal chest rise, no tachypnea or increased work of breathing Abdomen: soft, voluntary guarding, upper ttp with no murphys sign, no pain at mcburneys point Skin: Warm, dry, no erythema, no rash. [] Back: No tenderness, no CVA tenderness. [] Extremities: No tenderness, no cyanosis, no lower extremity edema Neurologic: Alert and oriented X 3, normal motor function, normal sensory function, no focal deficits noted. [] Psychologic: Affect normal, judgement normal, mood normal. [] Current Patient Data: Labs: Laboratory Tests Test 03/23/21 08:36 03/23/21 08:46 03/23/21 08:50 White Blood Count 12.6 x10^3/uL (4.0-11.0) H Red Blood Count 4.41 x10^6/uL (4.30-5.70) Hemoglobin 14.0 g/dL (13.0-17.5) Hematocrit 40.9 % (39.0-53.0) Mean Corpuscular Volume 93 fL (79-100) Mean Corpuscular Hemoglobin 32 pg (25-35) Mean Corpuscular Hemoglobin Concent 34 g/dL (31-37) Red Cell Distribution Width 13.7 % (11.5-14.5) Platelet Count 231 x10^3/uL (140-400) Neutrophils (%) (Auto) 72 % (31-73) Lymphocytes (%) (Auto) 21 % (24-48) L Monocytes (%) (Auto) 7 % (0-9) Eosinophils (%) (Auto) 0 % (0-3) Basophils (%) (Auto) 0 % (0-3) Neutrophils # (Auto) 9.1 x10^3uL (1.8-7.7) H Lymphocytes # (Auto) 2.6 x10^3/uL (1.0-4.8) Monocytes # (Auto) 0.8 x10^3/uL (0.0-1.1) Eosinophils # (Auto) 0.0 x10^3/uL (0.0-0.7) Basophils # (Auto) 0.1 x10^3/uL (0.0-0.2) Sodium Level 142 mmol/L (136-145) Potassium Level 2.9 mmol/L (3.5-5.1) *L Chloride Level 105 mmol/L (98-107) Carbon Dioxide Level 26 mmol/L (21-32) Anion Gap 11 (6-14) Blood Urea Nitrogen 28 mg/dL (8-26) H Creatinine 2.0 mg/dL (0.7-1.3) H Estimated GFR (Cockcroft-Gault) 46.8 BUN/Creatinine Ratio 14 (6-20) Glucose Level 157 mg/dL (70-99) H Calcium Level 8.7 mg/dL (8.5-10.1) Total Bilirubin 0.6 mg/dL (0.2-1.0) Aspartate Amino Transferase (AST) 24 U/L (15-37) Alanine Aminotransferase (ALT) 20 U/L (16-63) Alkaline Phosphatase 77 U/L (46-116) Troponin I High Sensitivity 11 ng/L (4-75) Total Protein 6.8 g/dL (6.4-8.2) Albumin 2.9 g/dL (3.4-5.0) L Albumin/Globulin Ratio 0.7 (1.0-1.7) L Lipase 24 U/L (73-393) L Ethyl Alcohol Level < 10 mg/dL (0-10) Lactic Acid Level 1.4 mmol/L (0.4-2.0) Creatine Kinase 384 U/L (39-308) H Acetone Level Neg (NEG) Urine Collection Type Unknown Urine Color Yellow Urine Clarity Clear Urine pH 7.0 Urine Specific [place] 1.020 Urine Protein >100 mg/dl (NEG-TRACE) Urine Glucose (UA) Neg mg/dL (NEG) Urine Ketones (Stick) 15 mg/dL (NEG) Urine Blood Trace (NEG) Urine Nitrite Neg (NEG) Urine Bilirubin Small (NEG) Urine Urobilinogen Dipstick 1.0 mg/dL (0.2 mg/dL) Urine Leukocyte Esterase Neg (NEG) Urine RBC 6-10 /HPF (0-2) Urine WBC 1-4 /HPF (0-4) Urine Squamous Epithelial Cells None /LPF Urine Bacteria 0 /HPF (0-FEW) Urine Opiates Screen Neg (NEG) Urine Methadone Screen Neg (NEG) Urine Barbiturates Neg (NEG) Urine Phencyclidine Screen Neg (NEG) Urine Amphetamine/Methamphetamine Neg (NEG) Urine Benzodiazepines Screen Neg (NEG) Urine Cocaine Screen Neg (NEG) Urine Cannabinoids Screen Pos (NEG) Urine Ethyl Alcohol Neg (NEG) Vital Signs: Vital Signs Date Time Temp Pulse Resp B/P (MAP) Pulse Ox O2 Delivery O2 Flow Rate FiO2 03/23/21 10:06 104 22 186/107 (133) 96 03/23/21 09:36 Room Air 03/23/21 08:24 98.8 EKG: EKG: sinus tachycardia 121 bpm, no axis deviation, QTC 471, no T wave inversion, no ST elevation ST depression Radiology/Procedures: Radiology/Procedures: IMAGING REPORT Signed PATIENT: NISHA BAIRD ACCOUNT: [id number] : 1985 LOCATION: ER AGE: 35 SEX: M EXAM STATUS: REG ER ORD. PHYSICIAN: ODIN SMITH DO REASON: upper abd pain - UNABLE TO INJECT DUE TO CREAT LEVEL PROCEDURE: CT ABDOMEN PELVIS WO CONTRAST INDICATION: Reason: upper abd pain - UNABLE TO INJECT DUE TO CREAT LEVEL / Spl. Instructions: / History: COMPARISON: July 10, 2020 TECHNIQUE: Axial CT images were obtained through the abdomen and pelvis without intravenous contrast. One or more of the following individualized dose reduction techniques were utilized for this examination: 1. Automated exposure control; 2. Adjustment of the mA and/or kV according to patient size; 3. Use of iterative reconstruction technique. FINDINGS: Mild prominence the wall of the distal esophagus. There is a calcification partially visualized at the penile region centrally. This was also seen on prior. Vascular: Calcific atherosclerosis. Hepatobiliary: No intrahepatic biliary duct dilation. Pancreas: Limited assessment without intravenous contrast. Spleen: Spleen unremarkable. Renal/Bladder: No hydronephrosis. Urinary bladder is partially distended. Mild prominence of wall. Gastrointestinal: No dilated loops of bowel to suggest obstruction. There is some gas and stool seen within the appendix with the appendix does not appear grossly inflamed. Degenerative changes throughout the spine. IMPRESSION: * No CT evidence of bowel obstruction or appendicitis. * Mild prominence the wall the distal esophagus. Could be from lack of distention unless the patient is having symptoms in the region to suggest an alternative cause such as reflux or esophagitis. Electronically signed by: Bebe Rivers MD (03/23/2021 10:39 AM) [id number] DICTATED AND SIGNED BY: BEBE RIVERS MD DATE: 03/23/21 1022 CC: PCP,PARTH; ODIN SMITH DO ~MTH0 0 IMAGING REPORT Signed PATIENT: NISHA BAIRD ACCOUNT: [id number] : 1985 LOCATION: ER AGE: 35 SEX: M EXAM STATUS: REG ER ORD. PHYSICIAN: ODIN SMITH DO REASON: n/v PROCEDURE: PORTABLE CHEST 1V EXAMINATION: Chest radiograph. VIEWS: Single AP view of chest COMPARISON: 07/05/2020 INDICATION:35 years, Male, Nausea vomiting. FINDINGS: Normal cardiomediastinal silhouette. No focal consolidation. No pleural effusion or pneumothorax. No acute osseous process. IMPRESSION: No confluent infiltrate. Electronically signed by: Wild Roberson DO (03/23/2021 8:47 AM) [id number] DICTATED AND SIGNED BY: WILD ROBERSON DO DATE: 03/23/21 0846 CC: PCP,NO; ODIN SMITH DO ~MTH0 0 Heart Score: C/O Chest Pain: No Risk Factors: Risk Factors: DM, Current or recent (<one month) smoker, HTN, HLP, family history of CAD, obesity. Risk Scores: Score 0 - 3: 2.5% MACE over next 6 weeks - Discharge Home Score 4 - 6: 20.3% MACE over next 6 weeks - Admit for Clinical Observation Score 7 - 10: 72.7% MACE over next 6 weeks - Early Invasive Strategies Course & Med Decision Making: Course & Med Decision Making Pertinent Labs and Imaging studies reviewed. (See chart for details) Abdominal pain with nausea and vomiting in the setting of chronic marijuana use. CT imaging concerning for reflux or esophagitis. Patient was treated for gastritis and cannabinoid hyperemesis syndrome. On reevaluation patient's nausea vomiting and abdominal pain have resolved. Will discharge home with strict ED return precautions were given for intractable nausea or vomiting, severe pain or fever. Encouraged urgent outpatient follow-up with PMD for rou yves care, GI to consider EGD for gastritis and nephrology for management of chronic kidney disease. Life-threatening processes were considered but are low suspicion at this time, given history, physical exam and ED workup. Pt was educated on all prescription medications and adverse effects. All patient's questions were answered and pt was stable at time of discharge. Life/limb-threatening differential includes but is not limited to, acute coronary syndrome/myocardial infarction, Boerhaave's, DKA, gastrointestinal bleeding, intracranial hemorrhage, ischemic bowel, meningitis, sepsis, surgical abdomen (AAA), toxidrome (drug over/overdose/carbon monoxide, etc), ovarian/testicular torsion, trauma, or infection/sepsis. I have spoken with the patient and/or caregivers. I explained the patient's condition, diagnoses and treatment plan based on the information available to me at this time. I have answered the patient and/or caregiver's questions and addressed any concerns. The patient and/or caregivers have a good understanding of patient's diagnosis, condition and treatment plan as can be expected at this point. Vital signs have been stable. Patient's condition is stable and appropriate for discharge from the emergency department. Patient will pursue further outpatient evaluation with primary care physician or other designated or consulting physician as outlined in the discharge i nstructions. The patient and/or caregivers are agreeable to this plan of care and follow-up instructions have been explained in detail. The patient and/or caregivers have received these instructions in written form and have expressed an understanding of the discharge instructions. The patient and/or caregivers are aware that any significant change of condition or worsening of symptoms should prompt immediate return to this or the closest emergency department or call to 911. Asia Disclaimer: Asia Disclaimer: This electronic medical record was generated, in whole or in part, using a voice recognition dictation system. Departure Departure: Impression: Primary Impression: Epigastric abdominal pain Additional Impressions: CKD (chronic kidney disease) Hypokalemia Marijuana use Disposition: 01 HOME / SELF CARE / HOMELESS Condition: STABLE Referrals: PCP,NO (PCP) Follow up with your pcp in 1-2 days or [facility] [phone] OR [facility] Lorenzo [phone] Patient Instructions: Marijuana Abuse-Brief, Nausea and Vomiting Additional Instructions: CONCERN FOR CANNABINOID HYPEREMESIS SYNDROME-PLEASE ABSTAIN FROM MARIJUANA USE FOLLOW UP WITH GASTROENTEROLOGY: FOR DEFINITIVE MANAGEMENT of gastritis, consider EGD [facility] [address] [place] [address] FOLLOW UP WITH NEPHROLOGY: FOR DEFINITIVE MANAGEMENT of chronic kidney disease [facility] [place] [address] [address] EMERGENCY DEPARTMENT GENERAL DISCHARGE INSTRUCTIONS Thank you for coming to [facility] (ED) today and trusting us with you care. We trust that you had a positivie experience in our Emergency Department. If you wish to speak to the department management, you may call the director at [phone]. YOUR FOLLOW UP INSTRUCTIONS ARE FOLLOWS: 1. Do you have a private Doctor? If you do not have a private doctor, please ask for a resource list of physicians or clinics that may be able to assist you with follow up care. 2. The Emergency Physician has interpreted your x-rays. The X-Ray specialist will also review them. If there is a change in the findings, you will be notified in 48 hours when at all possible. 3. A lab test or culture has been done, your results will be reviewed and you will be notified if you need a change in treatment. ADDITIONAL INSTRUCTIONS AND INFORMATION: 1. Your care today has been supervised by a physician who is specially trained in emergency care. Many problems require more than one evaluation for a complete diagnosis and treatment. We recommend that you schedule your follow up appointment as recommended to ensure complete treatment of you illness or injury. If you are unable to obtain follow up care and continue to have a problem, or if your condition worsens, we recommend that you return to the ED. 2. We are not able to safely determine your condition over the phone nor are we able to give sound medical advice over the phone. For these safety reasons, if you call for medical advice we will ask you to come to the ED for further evaluation. 3. If you have any questions regarding these discharge instructions please call the ED at [phone]. SAFETY INFORMATION: In the interest of safety, wellness, and injury prevention; we encourage you to wear your sealbelt, if you smoke; quite smoking, and we encourage family to use a protective helmet for bicycling and other sporting events that present an increased risk for head injury. IF YOUR SYMPTOMS WORSEN OR NEW SYMPTOMS DEVELOP, OR YOU HAVE CONCERNS ABOUT YOUR CONDITION; OR IF YOUR CONDITION WORSENS WHILE YOU ARE WAITING FOR YOUR FOLLOW UP APPOINTMENT; EITHER CONTACT YOUR PRIMARY CARE DOCTOR, THE PHYSICIAN WHOSE NAME AND NUMBER YOU WERE GIVEN, OR RETURN TO THE ED IMMEDIATELY. Scripts Famotidine (PEPCID) 20 Mg Tablet 1 TAB PO BID for GASTRITIS for 14 Days, #28 TAB 0 Refills Prov: ODIN SMITH DO 03/23/21 Capsaicin (CAPSAICIN) 42.5 Gm Cream..g. 1 BRITNI TP TID for nausea/vomiting for 7 Days, #42.5 GM 0 Refills Prov: ODIN SMITH DO 03/23/21 Ondansetron (ONDANSETRON ODT) 4 Mg Tab.rapdis 4 MG PO Q6HRS for Nausea/Vomiting, #15 TAB Prov: ODIN SMITH DO 03/23/21 ODIN SMITH DO Mar 23, 2021 10:52
[2021-03-23 11:30] VITALS: BP 163/73
[2021-03-23] MEDS ORDERED: ONDA4TAB12 PO (11:49)
[2021-03-23] MEDS ORDERED: CAPS42.514 TP (11:49)
[2021-03-23] MEDS ORDERED: FAMO-63 PO (11:51)
== END 2021-03-23 12:11 | disposition home or self-care (01) ==
LOC: ER 07:54
DX: E11.22 Type 2 diabetes mellitus with diabetic chronic kidney disease (principal); I12.9 Hypertensive chronic kidney disease with stage 1 through stage 4 chronic kidney disease, or unspecified chronic kidney disease; N18.9 Chronic kidney disease, unspecified; E87.6 Hypokalemia; F17.210 Nicotine dependence, cigarettes, uncomplicated; F12.10 Cannabis abuse, uncomplicated
CPT/HCPCS: 36415; 71045; 74176; 80053; 80307; 81001; 82010; 82550; 83605; 83690; 84484; 85025; 93005; 96361; 96374; 96375; 99285; G0480; J1630; J2405; J3490; J7030

== ENCOUNTER 2021-06-02 08:38 | Emergency (ER) | payer SELFPAY ==
[~2021-06-02] VITALS: Ht 175.3 cm; Wt 82.3 kg
[~2021-06-02 08:38] MED LIST changes: +CAPS42.514 TP; +FAMO-63 PO; +ONDA4TAB12 PO
[2021-06-02] MEDS ORDERED: ONDANSETRON ODT 4 MG TAB.RAPDIS ONE (09:32)
[2021-06-02] MEDS ORDERED: PROC10TA57 PO (09:35)
[2021-06-02] MEDS ORDERED: ONDA4TAB12 PO (09:35)
--- NOTE | 2021-06-02 09:36 | PHYS DOC ---
Past History Past Medical History: Diabetes Past Surgical History: No Surgical History Smoking: Cigarettes Alcohol Use: None Drug Use: Marijuana General Adult EDM: Chief Complaint: NAUSEA/VOMITING/DIARRHEA HPI: HPI: 35-year-old male past medical history of hypertension, insulin-dependent diabetes, daily marijuana use with cannabinoid hyperemesis syndrome presents with a chief complaint of nausea and vomiting. Patient states nausea and vomiting have been ongoing for the last 8 months. Patient states he smokes marijuana heavily and daily. Patient states most of his nausea and vomiting occur in the a.m. and improve after he takes his Zofran. Patient also states his nausea and vomiting improved after smoking marijuana. Associated symptoms include diffuse abdominal discomfort. At the time my exam patient states his nausea has greatly improved. Patient's abdomen is soft without rebound or guarding. Patient is ANO x4. He ambulated into the ER with a normal steady gait. Patient is accompanied by his father. Blood glucose was checked and noted to be greater than 300. Patient states he is not taking any of his insulin this a.m. Review of Systems: Review of Systems: Review of systems: Constitutional symptoms- No fever, no chills. Eyes- No Discharge, No Visual Loss Respiratory symptoms- No shortness of breath, No wheezing, No Dyspnea on Exertion Cardiovascular Systems; No chest pain, No Palpitations, No syncope Gastrointestinal symptoms: Positive abdominal pain, Positive nausea, Positive vomiting Genitourinary symptoms: No dysuria. Musculoskeletal symptoms: No back pain No extremity pain. NEUROLOGICAL Symptoms: No headache, no generalized weakness; No focal Weakness Skin: No rash. Allergies: Allergies: Allergies Coded Allergies Type Severity Reaction Last Updated Verified No Known Allergies Allergy Unknown 06/02/21 No Physical Exam: PE: General: alert, no acute distress. Skin: warm, dry and intact, no erythema, no rash. HENT: bilateral external ears normal, oropharynx moist, nose normal. Head:: Normocephalic, atraumatic. Neck: Trachea midline. Eyes: EOMI, Normal conjunctiva, No drainage CARDIOVASCULAR: Regular rate and rhythm RESPIRATORY: No respiratory distress Back: Full range of motion. MUSCULOSKELETAL: Full range of motion of bilateral upper and lower extremities. GASTROINTESTINAL: Abdomen soft without rebound or guarding. NEUROLOGICAL: Alert and noted to person, place and time. No neurological deficits observed Psychiatric: Cooperative. Normal judgment Current Patient Data: Labs: Laboratory Tests Test 06/02/21 09:02 Glucose (Fingerstick) 364 mg/dL (70-99) H Vital Signs: Vital Signs Date Time Temp Pulse Resp B/P (MAP) Pulse Ox O2 Delivery O2 Flow Rate FiO2 06/02/21 08:54 98.2 94 18 140/79 (99) 98 Room Air EKG: EKG: [] Radiology/Procedures: Radiology/Procedures: [] Heart Score: C/O Chest Pain: N/A Risk Factors: Risk Factors: DM, Current or recent (<one month) smoker, HTN, HLP, family history of CAD, obesity. Risk Scores: Score 0 - 3: 2.5% MACE over next 6 weeks - Discharge Home Score 4 - 6: 20.3% MACE over next 6 weeks - Admit for Clinical Observation Score 7 - 10: 72.7% MACE over next 6 weeks - Early Invasive Strategies Course & Med Decision Making: Course & Med Decision Making Pertinent Labs and Imaging studies reviewed. (See chart for details) [] Patient's nausea improved prior to arrival. I did dose patient with a dose of Zofran. Patient without any episodes of vomiting or dry heaving while in the emergency department. Patient's blood sugar was greater than 300 but he had not use any of his insulin this a.m. Patient's urine with no ketones no clinical concern for DKA or dehydration. Patient was discharged home with prescription of Zofran and Compazine. Patient advised to decreased THC use. Dragon Disclaimer: [place] Disclaimer: This electronic medical record was generated, in whole or in part, using a voice recognition dictation system. Departure Departure: Impression: Primary Impression: Cannabinoid hyperemesis syndrome Disposition: HOME / SELF CARE / HOMELESS Referrals: PCP,NO (PCP) Patient Instructions: Cyclic Vomiting Syndrome, Nausea and Vomiting Scripts Prochlorperazine Maleate (Compazine) 10 Mg Tablet 1 TAB PO Q6HRS for 7 Days, #28 TAB 0 Refills Prov: AINSLEY MARTIN I DO 06/02/21 Ondansetron (ONDANSETRON ODT) 4 Mg Tab.rapdis 1 TAB PO PRN Q6-8HRS, #20 TAB 3 Refills Prov: AINSLEY MARTIN I DO 06/02/21 AINSLEY MARTIN I DO Jun 02, 2021 09:36
[2021-06-02 09:53] LABS: CLARITY,URINE HAZY; COLOR,URINE YELLOW
[2021-06-02 09:54] LABS: BACTERIA,URINE 0 /HPF (0-FEW); GLUCOSE,URINE >=1000 mg/dL (NEG); GRANULAR CASTS,URINE OCC /HPF; HYALINE CASTS, URINE FEW /HPF; NITRITE,URINE NEG (NEG); SPERM,URINE PRESENT /HPF; SQUAMOUS EPITHELIAL CELL,UR FEW /LPF
[2021-06-02 10:00] VITALS: BP 137/77
== END 2021-06-02 10:08 | disposition home or self-care (01) ==
LOC: ER 08:38
DX: R11.2 Nausea with vomiting, unspecified (principal); E11.9 Type 2 diabetes mellitus without complications; I10 Essential (primary) hypertension; F12.10 Cannabis abuse, uncomplicated; F17.210 Nicotine dependence, cigarettes, uncomplicated
CPT/HCPCS: 81001; 82947; 87086; 99283